=== PATIENT | male | born 1990 | race Hispanic/Latino ===

== ENCOUNTER 2023-11-28 21:19 | Emergency (ER) | payer BC ==
[~2023-11-28] VITALS: Ht 180.3 cm; Wt 142.9 kg
[2023-11-28 22:45] LABS: SARS-CoV-2, RNA, NAAT NEGATIVE SARS CoV-2 (NEGATIVE)
[2023-11-28 22:49] LABS: INFLUENZA TYPE A Negative For Type A (NEGATIVE); INFLUENZA TYPE B Negative For Type B (NEGATIVE)
[2023-11-28] MEDS ORDERED: BENZ200C53 PO (23:33)
[2023-11-28] MEDS ORDERED: ALBU90AE2 IH (23:33)
[2023-11-28] MEDS ORDERED: AZIT250T9 PO (23:33)
[2023-11-29 00:04] VITALS: BP 129/82; PULSE 86; RESP 18; O2SAT 97
== END 2023-11-29 00:12 | disposition home or self-care (01) ==
LOC: EDH 21:19
DX: J20.9 Acute bronchitis, unspecified (principal); R05.9 Cough, unspecified; Z20.822 Contact with and (suspected) exposure to COVID-19
CPT/HCPCS: 99283; 71045; 87635; 87804 ×2; C9803

== ENCOUNTER 2024-03-24 22:44 | Emergency (ER) | payer BC ==
[~2024-03-24] VITALS: Ht 180.3 cm; Wt 145.1 kg
[~2024-03-24 22:44] MED LIST: ALBU90AE2 IH; AZIT250T9 PO; BENZ200C53 PO
[2024-03-24] MEDS ORDERED: SOLU-MEDROL 125MG VIAL IM ONE (23:00)
[2024-03-24 23:22] LABS: COVID19 (SARS ANTIGEN RAPID) PRESUMPTIVE NEGATIVE (NEGATIVE); INFLUENZA TYPE A Negative For Type A (NEGATIVE); INFLUENZA TYPE B Negative For Type B (NEGATIVE)
[2024-03-24 23:37] VITALS: PULSE 91; RESP 18
[2024-03-24] MEDS: ALBUTEROL 0.083% 2.5 MG/3 ML INH IH ONE (23:37)
[2024-03-24 23:48] VITALS: PULSE 85; RESP 18
[2024-03-24] MEDS: BUDESONIDE 0.5 MG/2 ML INH IH STA (23:48)
[2024-03-25] MEDS ORDERED: BENZ-39 PO (00:12)
[2024-03-25] MEDS ORDERED: BUDE90AE IH (00:12)
[2024-03-25] MEDS ORDERED: ALBUHFA IH (00:12)
[2024-03-25 00:27] VITALS: BP 132/68; PULSE 80; RESP 18; O2SAT 98
[2024-03-25] MEDS ORDERED: BUDESONIDE 0.5 MG/2 ML INH IH SCH (06:00)
== END 2024-03-25 00:27 | disposition home or self-care (01) ==
LOC: EDH 22:44
DX: J20.8 Acute bronchitis due to other specified organisms (principal); R06.09 Other forms of dyspnea; R05.9 Cough, unspecified; B96.89 Other specified bacterial agents as the cause of diseases classified elsewhere; F17.200 Nicotine dependence, unspecified, uncomplicated; Z79.51 Long term (current) use of inhaled steroids; Z20.822 Contact with and (suspected) exposure to COVID-19
CPT/HCPCS: 71045; 87426; 87804; 94640

== ENCOUNTER 2024-03-30 01:24 | Emergency (ER) | payer BC ==
[~2024-03-30] VITALS: Ht 180.3 cm; Wt 149.2 kg
[~2024-03-30 01:24] MED LIST changes: +ALBUHFA IH; +BENZ-39 PO; +BUDE90AE IH
[2024-03-30 01:52] LABS: RAPID GROUP A STREP negative (NEGATIVE)
[2024-03-30 01:58] LABS: SARS-CoV-2, RNA, NAAT NEGATIVE SARS CoV-2 (NEGATIVE)
[2024-03-30 02:00] LABS: INFLUENZA TYPE A NEGATIVE FOR TYPE A (NEGATIVE); INFLUENZA TYPE B NEGATIVE FOR TYPE B (NEGATIVE)
[2024-03-30 03:19] LABS: BASOPHILS # (AUTO) 0.14 K/uL (0.00-0.20); BASOPHILS % (AUTO) 0.9 % (0.0-5.0); EOSINOPHILS # (AUTO) 0.09 K/uL (0.00-0.70); EOSINOPHILS % (AUTO) 0.6 % (0.0-8.0); HEMATOCRIT 51.1 % (42-54); IMMATURE GRANULOCYTE ABSOLUTE 0.34 K/uL (0-1); MEAN CORPUSCULAR HEMOGLOBIN 28.4 pg (27.0-33.0); MEAN CORPUSCULAR HGB CONC 34.2 g/dL (32.0-36.0); MONOCYTES # (AUTO) 1.2 K/uL (0.1-1.0); MONOCYTES % (AUTO) 7.6 % (3.0-13.0); NEUTROPHILS # (AUTO) 9.7 K/uL (1.8-7.7); NEUTROPHILS % (AUTO) 62.7 % (40.0-77.0); PLATELET COUNT (AUTO) 324 K/uL (130-400); RED BLOOD CELL COUNT(AUTO) 6.16 MIL/uL (4.50-6.20); RED CELL DISTRIBUTION WIDTH 14.1 % (11.0-15.5); WHITE BLOOD COUNT (AUTO) 15.5 K/uL (4.8-10.8)
[2024-03-30 03:21] LABS: CREATININE 0.9 mg/dL (0.5-1.3); POTASSIUM 4.2 mmol/L (3.5-5.1)
[2024-03-30 03:24] LABS: ALBUMIN 3.9 g/dL (3.5-5.0); BILIRUBIN,TOTAL 0.4 mg/dL (0.2-1.0); TOTAL PROTEIN, SERUM 7.9 g/dL (6.0-8.3)
[2024-03-30] MEDS ORDERED: NEBU1KIT3 MC (03:56)
[2024-03-30] MEDS ORDERED: AZIT500T2 PO (03:56)
[2024-03-30] MEDS ORDERED: ALBU2.5V2 IH (03:56)
[2024-03-30 03:57] VITALS: PULSE 63; RESP 18
[2024-03-30] MEDS: IPRATROPIUM/ALBUTEROL SULFATE 3 ML SOLUTION IH ONE (03:57)
[2024-03-30] MEDS: AZITHROMYCIN 250 MG TABLET PO ONE (04:09)
[2024-03-30 04:20] VITALS: BP 135/80; PULSE 72; RESP 18; O2SAT 100
== END 2024-03-30 04:25 | disposition home or self-care (01) ==
LOC: EDH 01:24
DX: J20.9 Acute bronchitis, unspecified (principal); J45.909 Unspecified asthma, uncomplicated; F17.200 Nicotine dependence, unspecified, uncomplicated; Z20.822 Contact with and (suspected) exposure to COVID-19; Z79.899 Other long term (current) drug therapy
CPT/HCPCS: 36415; 71045; 80053; 83605; 85025; 87635; 87804; 87880; 94640

== ENCOUNTER 2025-07-21 12:21 | Emergency (ER) | payer BC ==
[~2025-07-21] VITALS: Ht 180.3 cm; Wt 153.3 kg
[~2025-07-21 12:21] MED LIST changes: +ALBU2.5V2 IH; -ALBU90AE2 IH; -AZIT250T9 PO; +AZIT500T2 PO; -BENZ200C53 PO; -BUDE90AE IH; +BUDE90AE3 IH; +NEBU1KIT3 MC
[2025-07-21 12:53] LABS: IMMATURE GRANULOCYTE ABSOLUTE 0.04 K/uL (0-1); NUCLEATED RED BLOOD CELLS 0.0 % (0.0-0.19); PLATELET COUNT (AUTO) 284 K/uL (130-400); RED BLOOD CELL COUNT(AUTO) 5.69 MIL/uL (4.50-6.20); RED CELL DISTRIBUTION WIDTH 14.3 % (11.0-15.5); WHITE BLOOD COUNT (AUTO) 10.0 K/uL (4.8-10.8)
[2025-07-21 13:09] LABS: APPEARANCE,URINE CLEAR (CLEAR); GLUCOSE, URINE (UA) NEGATIVE (NEGATIVE); LEUKOCYTE ESTERASE ,URINE NEGATIVE Leu/uL (NEGATIVE); NITRATE,URINE NEGATIVE (NEGATIVE); OCCULT BLOOD,URINE NEGATIVE (NEGATIVE)
[2025-07-21] MEDS: MAG/ALUM/SIMETH 30 ML UDCUP PO ONE (13:09)
[2025-07-21] MEDS: LIDOCAINE HCL 2% VISCOUS 15 ML UDCUP PO ONE (13:09)
[2025-07-21 13:12] LABS: CREATININE 1.1 mg/dL (0.5-1.3); GLOMERULAR FILTR. RATE CALC 89.0 mL/min (>90); GLUCOSE,RANDOM 117.0 mg/dL (70-105); SODIUM SERUM 141.0 mmol/L (136-145); UREA NITROGEN, BLOOD 7.0 mg/dL (7-18)
[2025-07-21 13:15] LABS: ADD UA MICROSCOPIC NO
[2025-07-21 13:16] LABS: ASPARTATE AMINOTRANSFERASE 33.0 U/L (10-37); CREATINE KINASE, TOTAL 76.0 U/L (21-232); TOTAL PROTEIN, SERUM 7.1 g/dL (6.0-8.3)
--- NOTE | 2025-07-21 13:17 | EKG ---
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
--- NOTE | 2025-07-21 13:23 | ERN ---
General Chief Complaint: Abdominal Pain Stated Complaint: ABD PAIN Time Seen by MD: :23 Source: patient History of Present Illness Initial Comments Patient is a 35-year-old male coming in complaining of epigastric pain. Patient states that he was seen by his PCP in his started on medications for gastritis. He states that last night he started having worse worsening pain. He took his medication but states he did pass gas but stomach still hurts. Allergies: Coded Allergies: No Known Drug Allergies (Unverified Allergy, Unknown, 11/28/23) Home Meds Active Scripts Nebulizer (Compact Compressor Nebulizer) 1 Each Each, EACH MC TID for reactive airway disease , #1 Prov:NICHOLE KING MD 03/30/24 Azithromycin (Zithromax Tri-Bonifacio) 500 Mg Tablet, 500 MG PO DAILY, #3 TAB Prov:NICHOLE KING MD 03/30/24 Albuterol Sulfate (Albuterol Sulfate) 2.5 Mg/3 Ml (0.083 %) Vial.neb, 2.5 MG IH TID, #30 INH Prov:NICHOLE KING MD 03/30/24 Budesonide (Pulmicort Flexhaler) 90 Mcg Aer.pow.ba, 90 MCG IH BIDAC for 10 Days, #1 UNIT 1 Refill Prov:JAMEY FLORENTINO NP 03/25/24 Benzonatate (Tessalon Perles) 100 Mg Cap, 100 MG PO TID for cough, #50 CAP 0 Refills 2 capsules by mouth every 8 hours as needed cough Prov:JAMEY FLORENTINO NP 03/25/24 Albuterol Sulfate (Ventolin Hfa/Proventil Hfa/Proair Hfa) 90 Mcg Puff, 2 PUFF IH Q4H for WHEEZING, #1 INHALER 0 Refills Prov:JAMEY FLORENTINO NP 03/25/24 Past Medical History Past Medical History: Bronchitis, GERD, Hypertension Past Surgical History: None Social History Social History: Smokers, Lives with family ROS Dictation CONSTITUTIONAL: No chills, no fever, no weakness, no diaphoresis, no malaise. HEAD/FACE: No signs of trauma. EENT: No eye pain, no blurred vision, no tearing, no double vision, no ear pain, no ear discharge, no nose pain, no nasal congestion, no throat pain, no throat swelling, no mouth pain. RESPIRATORY: No cough, no orthopnea, no SOB, no stridor, no wheezing. CARDIOVASCULAR: No chest pain, no edema, no palpitations, no syncope. GASTROINTESTINAL/ABDOMINAL: abdominal pain, no constipation, no diarrhea, no nausea, no vomiting. GENITOURINARY: No abnormal discharge, no dysuria, no frequent urination, no hematuria. No complaints of pain in the genitals. MUSCULOSKELETAL: No back pain, no gout, no joint pain, no joint swelling, no muscle pain, no muscle stiffness, no neck pain. INTEGUMENTARY: No change in color, no change in hair/nails, no dryness, no lesion, no lumps, no rash. NEUROLOGICAL/PSYCH: No anxiety, not depressed, no emotional problem, no headache, no numbness, no pre-existing deficit, no history of seizures, no tremors, no weakness. HEMATOLOGIC/LYMPHATIC: Not anemic, no history of blood clots, no apparent bleeding, no bruising, glands not swollen. All Systems Negative, Except as Noted. Physical Exam Physical Exam Dictation VITAL SIGNS: Reviewed. GENERAL APPEARANCE: Alert, oriented x3, no acute distress, obese. HEAD AND FACE: Non-traumatic. EYES: PERRL, pink conjunctivas, eyelid no trauma, anterior chamber clear. EARS: Pinnas intact and no signs of trauma or erythema. Ear canals clear and no discharge. TMs no erythema. NOSE: No discharge, no bleeding. OROPHARYNX: Mouth normal, teeth no caries, tongue pink. Pharynx clear, no erythema. Tonsils no exudates, no abscesses noted. Mucous membrane moist. NECK: Supple, non-tender, no thyromegaly, no masses, no JVD, no bruits. BREAST: Deferred. CHEST: No tenderness, no crepitus, no paradoxical movement, no retractions. LUNGS: Clear, well-ventilated, symmetric, no rales, no wheezing, no rhonchi, no stridor, good breath sounds bilaterally. HEART: Regular rate, regular rhythm, no murmur, no gallops. VASCULAR: No peripheral edema. ABDOMEN: Soft, positive bowel sounds, nondistended, no guarding, epigastric tenderness on palpation, no rebound, no masses no hepatomegaly, no splenomegaly, no Bejarano's sign, no hernias. RECTAL: Deferred. GENITAL: Deferred. NEUROLOGICAL: Normal speech, gross motor function intact, gross sensory function intact. MUSCULOSKELETAL: Neck nontender, full range of motion, back nontender, full range of motion. EXTREMITIES: Nontender, full range of motion. SKIN: Color pink, dry, no turgor, no rash, no lacerations, no abrasions, no contusions. LYMPHATICS: Deferred. Results Laboratory and Microbiology Lab and Micro Result Laboratory Tests Test 07/21/25 12:44 07/21/25 13:03 White Blood Count 10.0 K/uL (4.8-10.8) Red Blood Count 5.69 MIL/uL (4.50-6.20) Hemoglobin 16.0 g/dL (14.0-18.0) Hematocrit 47.2 % (42-54) Mean Corpuscular Volume 83.0 fL (79-99) Mean Corpuscular Hemoglobin 28.1 pg (27.0-33.0) Mean Corpuscular Hemoglobin Concent 33.9 g/dL (32.0-36.0) Red Cell Distribution Width 14.3 % (11.0-15.5) Platelet Count 284 K/uL (130-400) Mean Platelet Volume 10.2 fL (7.5-10.5) Immature Granulocyte % (Auto) 0.4 % (0-1) Neutrophils (%) (Auto) 60.8 % (40.0-77.0) Lymphocytes (%) (Auto) 25.7 % (21.0-51.0) Monocytes (%) (Auto) 7.4 % (3.0-13.0) Eosinophils (%) (Auto) 4.8 % (0.0-8.0) Basophils (%) (Auto) 0.9 % (0.0-5.0) Neutrophils # (Auto) 6.1 K/uL (1.8-7.7) Lymphocytes # (Auto) 2.6 K/uL (1.0-4.8) Monocytes # (Auto) 0.7 K/uL (0.1-1.0) Eosinophils # (Auto) 0.48 K/uL (0.00-0.70) Basophils # (Auto) 0.09 K/uL (0.00-0.20) Absolute Immature Granulocyte (auto 0.04 K/uL (0-1) Nucleated Red Blood Cells 0.0 % (0.0-0.19) Sodium Level 141 mmol/L (136-145) Potassium Level 4.4 mmol/L (3.5-5.1) Chloride Level 103 mmol/L (101-111) Carbon Dioxide Level 34 mmol/L (21-32) H Blood Urea Nitrogen 7 mg/dL (7-18) Creatinine 1.1 mg/dL (0.5-1.3) Glomerular Filtration Rate Calc 89 mL/min (>90) Random Glucose 117 mg/dL (70-105) H Total Calcium 9.0 mg/dL (8.5-10.1) Total Bilirubin 1.0 mg/dL (0.2-1.0) Aspartate Amino Transf (AST/SGOT) 33 U/L (10-37) Alanine Aminotransferase (ALT/SGPT) 83 U/L (12-78) H Alkaline Phosphatase 74 U/L (50-136) Total Creatine Kinase 76 U/L (21-232) Troponin I High Sensitivity 5 ng/L (4-75) Total Protein 7.1 g/dL (6.0-8.3) Albumin 4.0 g/dL (3.5-5.0) Lipase 22 U/L (16-77) Urine Color LIGHT-YELLOW (YELLOW) Urine Appearance CLEAR (CLEAR) Urine pH 7.0 (5.0-8.0) Urine Specific [place] 1.008 (1.001-1.031) Urine Protein NEGATIVE mg/dL (NEGATIVE) Urine Glucose (UA) NEGATIVE mg/dL (NEGATIVE) Urine Ketones NEGATIVE mg/dL (NEGATIVE) Urine Occult Blood NEGATIVE (NEGATIVE) Urine Nitrate NEGATIVE (NEGATIVE) Urine Bilirubin NEGATIVE mg/dL (NEGATIVE) Urine Urobilinogen 0.2 mg/dL (0.2-1.0) Urine Leukocyte Esterase NEGATIVE Yoko/uL Labs Reviewed?: Yes EKG/XRAY/US/CT/MRI EKG Comment 07/21/2025 time 12:49 p.m. Ventricular rate 61 Sinus rhythm [place] [address] wave elevation or depression MDM MDM: Differential diagnosis: GERD, peptic ulcer disease, gastritis, Rationale: Tests considered and ordered secondary to shared decision making include: Previous outside records reviewed: Old ER visits. Risk of complication and/or morbidity or mortality of patient management: None Medications-Per medication reconciliation Need for hospitalization: Patient does not meet criteria for hospitalization. Need for emergency major/minor surgery: No Patient is a 35-year-old male coming in complaining of epigastric pain. Laboratory workup with a him in the limits. Patient has been prescribed Protonix in his pending re-evaluation by PCP. Patient received GI cocktail will be discharged in stable condition with a diagnosis of esophagitis with a stress ED Course Orders Procedure Category Date Status Time Cbc With Differential LAB 07/21/25 Complete 12:35 Comprehensive LAB 07/21/25 Complete Metabolic Panel 12:35 Troponin I High LAB 07/21/25 Complete Sensitivity 12:35 Urinalysis Profile LAB 07/21/25 Complete 12:35 12 Lead Ekg Tracing- EKG 07/21/25 Complete Technical 12:35 Ondansetron 4mg Inj PHA 07/21/25 Complete (Zofran 4mg Inj) 13:00 Lidocaine Hcl 2% PHA 07/21/25 Complete Viscous (Lidocaine Hcl 13:00 Mag/Alum/Simeth 30ml PHA 07/21/25 Complete (Maalox Plus 30ml) 13:00 Creatine Kinase, Total LAB 07/21/25 Complete 12:35 Lipase LAB 07/21/25 Complete 12:35 Current Medications Medications (Trade) Dose Ordered Sig/Rachael Route PRN Reason Start Time Stop Time Status Last Admin Dose Admin Al Hydroxide/Mg Hydroxide (MAALox PLUS 30ML) 30 ml ONCE ONCE PO 07/21/25 13:00 07/21/25 13:01 DC 07/21/25 13:09 Lidocaine HCl (Lidocaine HCl 2% Viscous) 10 ml ONCE ONCE PO 07/21/25 13:00 07/21/25 13:01 DC 07/21/25 13:09 Ondansetron HCl (zoFRAN 4MG INJ) 4 mg ONCE ONCE IVP 07/21/25 13:00 07/21/25 13:01 DC 07/21/25 13:08 Vital Signs Date Time Temp Pulse Resp B/P (MAP) Pulse Ox O2 Delivery O2 Flow Rate FiO2 07/21/25 12:23 98.2 64 18 152/95 98 Room Air 0 DX & DISP Disposition: Discharge Departure Impression: Primary Impression: Gastroesophageal reflux disease without esophagitis Condition: Stable Scripts Mag Hydrox/Al Hydrox/Simeth (Maalox Maximum Strength Susp) 400 Mg-400 Mg-40 Mg/5 Ml Oral.susp 20 ML PO Q6H for 5 Days, #355 ML 0 Refills Prov: JUAN DUENAS MD 07/21/25 Additional Instructions: FOLLOW-UP WITH PRIMARY CARE PROVIDER IN 1 TO 2 DAYS. TAKE MEDICATIONS DIRECTED HERE IN THE EMERGENCY ROOM. OKAY TO CONTINUE HOME MEDICATIONS UNLESS OTHERWISE DISCUSSED DURING YOUR VISIT IN THE EMERGENCY ROOM TODAY. RETURN TO YOUR NEAREST EMERGENCY ROOM IF SYMPTOMS WORSEN OR IF THERE IS NO IMPROVEMENT. CALL 911 IF YOU NEED IMMEDIATE ASSISTANCE. TAKE TYLENOL [id number] NEEDED AND IF NO CONTRAINDICATIONS ARE PRESENT. INCREASE ORAL HYDRATION. A WOUND CULTURE OR URINE CULTURE WAS ORDERED HERE IN THE EMERGENCY ROOM DEPARTMENT PLEASE FOLLOW-UP WITH PRIMARY CARE PROVIDER AND ADVISE THEM TO GET REPORTS FROM OUR FACILITY. IF YOU HAD ANY JAVON WRAP/SPLINTS THAT WERE APPLIED HERE, PLEASE DO NOT REMOVE THEM UNTIL YOU SEE YOUR PRIMARY CARE OR SPECIALTY. Referrals: Referrals: SELF,REFERRAL (PCP) DEVON TROY MD Time of Disposition: 13:25 JUAN DUENAS MD Jul 21, 2025 13:23
[2025-07-21] MEDS ORDERED: MAG-55 PO (13:26)
[2025-07-21 13:27] VITALS: BP 141/86; PULSE 60; RESP 18; TEMP 98.2; O2SAT 98
== END 2025-07-21 13:45 | disposition home or self-care (01) ==
LOC: EDH 12:21
DX: K21.9 Gastro-esophageal reflux disease without esophagitis (principal); I10 Essential (primary) hypertension; F17.200 Nicotine dependence, unspecified, uncomplicated; Z79.51 Long term (current) use of inhaled steroids; Z79.899 Other long term (current) drug therapy
CPT/HCPCS: 99284; 96374; 82550; 84484; 80053; 83690; 85025; 81003; 36415; 93005; J2405